=== PATIENT | female | born 1975 | race Caucasian/White ===

== ENCOUNTER → 2018-12-05 11:02 | Outpatient (REF) | payer OTHER, SELFPAY ==
[2018-12-05 12:35] LABS: Appearance Urine UA CLEAR; Bilirubin Urine UA NEGATIVE (NEGATIVE); Color Urine UA YELLOW; Glucose Urine UA NEGATIVE (Negative); Ketones Urine UA NEGATIVE (NEGATIVE); Leukocyte Esterase Urine UA NEGATIVE (NEGATIVE); Nitrite Urine UA NEGATIVE (Negative); Occult Blood Urine UA 3+ (Negative); Protein Urine UA NEGATIVE (Negative); Specific Gravity Urine UA 1.025 (1.000-1.035); Urobilinogen Urine UA 0.2 E.U./dL (0.2); pH Urine UA 5.5 (4.5-8.0)
[2018-12-05 13:05] LABS: Amorphous Sediment Urine 1+; Bacteria Urine Occasional (0-1); RBC Urine 1-5/HPF (0-5/HPF); Squamous Epithelial Cell Urine 1-5 /HPF; WBC Urine 1-5/HPF (0-5/HPF)
[2018-12-05 13:06] LABS: Culture Indicated Urine Cult Not Indicated; Mucus Urine 1+ (Negative)
== END ==
LOC: LAB 11:02
PROVIDERS: Visit Provider Nurse Practitioner Family
DX: R68.89 Other general symptoms and signs (principal); R53.83 Other fatigue
CPT/HCPCS: 81001

== ENCOUNTER 2019-06-07 09:42 | Emergency (ER) | payer OTHER, SELFPAY ==
--- NOTE | 2019-06-07 09:54 | DI.RAD.S_ITS ---
PROCEDURE: XR CHEST 2V INDICATIONS: shortness of breath TECHNIQUE: 2 views of the chest were acquired. COMPARISON: None. FINDINGS: Surgical changes and devices: None. Lungs and pleura: Lungs are clear. No pleural effusions or pneumothorax. Mediastinum: Mediastinal contours are normal. Heart size is normal. Bones and chest wall: No suspicious bony abnormalities. Soft tissues appear unremarkable. IMPRESSION: No acute cardiopulmonary abnormalities. Dictated by: Hitesh Zamudio M.D. on 06/07/2019 at 9:28 Approved by: Hitesh Zamudio M.D. on 06/07/2019 at 9:29
[2019-06-07 09:55] VITALS: BP 142/95; PULSE 83; RESP 18; TEMP 36.8; O2SAT 100; BMI 26.6
[2019-06-07] MEDS: ALBUTEROL 2.5 MG/3 ML NEB (ADULT) INH (10:04)
[2019-06-07 10:09] VITALS: PULSE 78; O2SAT 97
[2019-06-07 10:18] LABS: Add Manual Diff / Slide Review NO; Basophils Absolute Auto 0 /uL (0-100); Basophils Percent Auto 0.6 % (0-2); Eosinophils Absolute Auto 700 /uL (0-450); Hematocrit 39.1 % (36-46); Hemoglobin 13.2 g/dL (12.0-16.0); Lymphocytes Absolute Auto 1800 /uL (1100-4500); Lymphocytes Percent Auto 27.6 % (25-40); Mean Corpuscular HGB Conc 33.8 % (30-36); Mean Corpuscular Hemoglobin 31.9 PG (26-34); Mean Corpuscular Volume 94.3 fL (80-100); Monocytes Absolute Auto 400 /uL (0-900); Monocytes Percent Auto 6.2 % (3-14); Neutrophils Absolute Auto 3600 /uL (1500-7000); Neutrophils Percent Auto 55.6 % (50-75); Platelet Count 259 X10^3/uL (150-400); Red Blood Cell Count 4.14 X10^6/uL (4.0-5.2); Red Cell Distribution Width 12.7 % (11.6-14.8); White Blood Cell Count 6.5 X10^3/uL (4.5-11.0)
[2019-06-07 10:33] LABS: Alanine Aminotransferase 14 IU/L (9-52); Albumin 4.2 g/dL (3.5-5.0); Albumin Globulin Ratio 1.4 (1.0-2.8); Alkaline Phosphatase 38 U/L (38-126); Aspartate Aminotransferase 19 IU/L (14-36); Bilirubin Total 0.6 mg/dL (0.2-1.3); Blood Urea Nitrogen 11 mg/dL (7-17); Calcium 8.9 mg/dL (8.4-10.2); Carbon Dioxide 22 mmol/L (22-32); Chloride 107 mmol/L (98-107); Estimated Glomerular Filt Rate > 60.0 mL/min (>60); Globulin 2.9 g/dL (1.7-4.1); Glucose 94 mg/dL (70-100); HEMOLYSIS < 15 (0-50); Lactate (Lactic Acid) 0.7 mmol/L (0.7-2.1); Potassium 4.1 mmol/L (3.4-5.1); Sodium 139 mmol/L (137-145); Total Protein 7.1 g/dL (6.3-8.2)
[2019-06-07 11:00] VITALS: BP 123/76; PULSE 85; RESP 17; O2SAT 98
[2019-06-07 11:30] VITALS: BP 110/59; PULSE 78; RESP 16; O2SAT 97
--- NOTE | 2019-06-07 11:46 | ED.SOB ---
HPI - SOB/Dyspnea <PRADEEP Oh - Last Filed: 06/07/19 22:09> General Chief Complaint: Shortness of Breath/Dyspnea Stated Complaint: SOB/Chest heaviness-sent from [facility] Time Seen by Provider: 06/07/19 11:30 Source: patient and family Mode of arrival: ambulatory Limitations: no limitations History of Present Illness HPI Narrative: This is a 44-year-old female, nonsmoker, presents with her spouse with chief complain of a short of breath, mid chest pressure discomfort with tightness for 1 week. Patient reports this has been constant and she has to sleep with head of bed elevated due to cough. She denies fever, chills, nausea or vomiting, recent travel outside the [place] She was sweaty but not in cold-sweat. She is not currently on estrogen hormone, history of blood clotting problems. Patient reports cough is in nonproductive nature. She reports decreased appetite. She has history of asthma and been using albuterol inhaler about 4-5 times a day but effective. Patient denies cardiac history in family. She was not currently on statin but was told a abnormal to with lipid panel. Related Data Home Medications Medication Instructions Recorded Confirmed venlafaxine 75 mg capsule,extended 75 mg PO DAILY 10/02/18 11/28/18 release 24 hr ResMed AirSense 10 CPAP #1 ea 11/28/18 11/28/18 Previous Rx's Medication Instructions Recorded erythromycin 5 mg/gram (0.5 %) eye 1 applic OPHTHALMIC (EYE) TID #1 01/17/19 ointment gram albuterol sulfate 2 inhalation INHALATION Q6H PRN 06/07/19 #18 gram prednisone 40 mg PO DAILY 4 Days tab 06/07/19 Allergies Allergy/AdvReac Type Severity Reaction Status Date / Time Sulfa (Sulfonamide Allergy Unknown Unverified 01/20/19 08:58 Antibiotics) [SULFA (SULFONAMIDE ANTIBIOTICS)] Review of Systems <PRADEEP Oh - Last Filed: 06/07/19 22:09> Review of Systems Narrative: General: See HPI HEENT: Denies sinus pain, ear pain, sore throat, difficulty swallowing, dizziness. Respiratory: See HPI Cardiovascular: See HPI Gastrointestinal: Denies nausea, vomiting, abdominal pain, diarrhea, constipation, melena. : Denies dysuria, frequency, incontinence, hematuria, urinary retention. Musculoskeletal: Denies weakness, joint pain or bony pain. Skin: Denies rash, skin lesions, or other. Neurologic: Denies weakness, headache, numbness, change in speech, confusion, seizures, incoordination. Psychiatric: No concerning psychosocial issues. 12-point review of systems is negative except for those stated above. PFSH <PRADEEP Oh - Last Filed: 06/07/19 22:09> Medical History Depression with anxiety (Chronic) Hypersomnia (Chronic ~1989) Obstructive sleep apnea of adult (Chronic ~1989) Social History (System 01/20/19 @ 08:58 by Arminda Calloway) Smoking Status: Never smoker Social History Smoking Status: Never smoker Exam <PRADEEP Oh - Last Filed: 06/07/19 22:09> Narrative Exam Narrative: GEN: Alert, oriented x 3, well appearing and nourished, and in no acute distress. Head: Normal cephalic, atraumatic. No scalp or temporal tenderness, palpable mass or rash. EYES: Pupils are equal, round, and reactive to light and accommodation. Extraocular muscles are intact bilaterally. There is no subconjunctival hemorrhage, exudate and sclera non-icteric. ENT: Bilateral auditory canals and tympanic membranes clear. Hearing grossly intact. Nose without bleeding, purulent discharge or deviation. Facial sinuses nontender to palpate. Mucous membrane moist, no mucosal lesion. Throat without erythema, tonsillar hypertrophy or exudate. Uvula in midline, airway patent. Neck: Trachea in midline. No JVD, non-tender without lymphadenopathy. No masses or thyroid megaly. Supple, non-tender and no meningeal signs. CARDIAC: Normal regular rate and rhythm without murmurs, gallops, or rubs. No chest wall tenderness. No peripheral edema, cyanosis or pallor. Capillary refill is less than 2 seconds. RESPIRATORY: Lungs are cleat to auscultate bilaterally. No cough, wheezes, rales, or rhonchi. No stridor, respiratory distress, increase work of breathing, or accessary muscle used. ABD: Abdomen soft, nontender and non-distended. No guarding or rebound tenderness to palpate. Bowel sounds are normal in all 4 quadrants. There is no palpable masses or organomegaly. EXT: Full painless ROM of all extremities with no loss of sensation, strength, effusion or edema. SKIN: Warm, dry, normal color for patient. No erythema, lesions or rash over visible areas. BACK: Nontender without deformity or crepitance. No flank tenderness. NEUROLOGICAL: Alert and oriented to place, time and person. Sensation and motor function intact bilaterally. No facial droops, dysphasia. PSYCHIATRIC: Good judgement and reason, without hallucinations, abnormal affect or abnormal behaviors during the examination. Initial Vital Signs Initial Vital Signs: Vital Signs Temperature 98.2 F 06/07/19 09:55 Pulse Rate 83 06/07/19 09:55 Respiratory Rate 18 06/07/19 09:55 Blood Pressure 142/95 H 06/07/19 09:55 Pulse Oximetry 100 06/07/19 09:55 <Landy Montejo DO - Last Filed: 06/08/19 19:24> Initial Vital Signs Initial Vital Signs: Vital Signs Temperature 98.2 F 06/07/19 09:55 Pulse Rate 83 06/07/19 09:55 Respiratory Rate 18 06/07/19 09:55 Blood Pressure 142/95 H 06/07/19 09:55 Pulse Oximetry 100 06/07/19 09:55 Scores <PRADEEP Oh - Last Filed: 06/07/19 22:09> HEART Score Heart Score history: Slightly Suspicious Heart Score EKG: Normal Heart Score Age: 45-64 years old Heart Score risk factors: 1-2 risk factors Heart Score troponin: < or = to normal limit Heart Score Total: 2 Course <PRADEEP Oh - Last Filed: 06/07/19 22:09> Orders Ordered: Discontinued Medications Albuterol (Ventolin) 2.5 mg INH NOW ONE Stop: 06/07/19 09:59 Last Admin: 06/07/19 10:04 Dose: 2.5 mg Documented by: ILANA Albuterol (Ventolin) 2.5 mg INH NOW ONE Stop: 06/07/19 14:12 Last Admin: 06/07/19 14:57 Dose: Not Given Documented by: MARGARITO Prednisone (Deltasone) 40 mg PO NOW ONE Stop: 06/07/19 13:08 Last Admin: 06/07/19 13:22 Dose: 40 mg Documented by: MARGARITO Vital Signs Vital signs: Vital Signs - 8 hr 06/07/19 14:35 Pulse Rate 88 Blood Pressure [Right Arm] 135/96 H Pulse Oximetry 98 <Landy Montejo DO - Last Filed: 06/08/19 19:24> Orders Ordered: Discontinued Medications Albuterol (Ventolin) 2.5 mg INH NOW ONE Stop: 06/07/19 09:59 Last Admin: 06/07/19 10:04 Dose: 2.5 mg Documented by: ILANA Albuterol (Ventolin) 2.5 mg INH NOW ONE Stop: 06/07/19 14:12 Last Admin: 06/07/19 14:57 Dose: Not Given Documented by: MARGARITO Prednisone (Deltasone) 40 mg PO NOW ONE Stop: 06/07/19 13:08 Last Admin: 06/07/19 13:22 Dose: 40 mg Documented by: MARGARITO Vital Signs Vital signs: Vital Signs - 8 hr 06/07/19 14:35 Pulse Rate 88 Blood Pressure [Right Arm] 135/96 H Pulse Oximetry 98 MDM - SOB/Dyspnea <PRADEEP Oh - Last Filed: 06/07/19 22:09> Differential Diagnosis Differential diagnosis: Likely community acquired pneumonia, asthma with exacerbation, pulmonary embolism and other (atypical chest pain, ACS) Medical Records Attestation: I reviewed the patient's medical records. Lab Data Attestation: I reviewed the patient's lab results. Result diagrams: 06/07/19 10:09 06/07/19 10:09 Labs: Lab Results 06/07/19 06/07/19 06/07/19 Range/Units 10:09 10:09 10:09 WBC 6.5 (4.5-11.0) X10^3/uL RBC 4.14 (4.0-5.2) X10^6/uL Hgb 13.2 (12.0-16.0) g/dL Hct 39.1 (36-46) % MCV 94.3 (80-100) fL MCH 31.9 (26-34) PG MCHC 33.8 (30-36) % RDW 12.7 (11.6-14.8) % Plt Count 259 (150-400) X10^3/uL Neut % (Auto) 55.6 (50-75) % Lymph % (Auto) 27.6 (25-40) % [place] % (Auto) 6.2 (3-14) % Eos % (Auto) 10.0 H (2-4) % Baso % (Auto) 0.6 (0-2) % Neut # (Auto) 3600 (8238-7687) /uL Lymph # (Auto) 1800 (0881-2446) /uL [place] # (Auto) 400 (0-900) /uL Eos # (Auto) 700 H (0-450) /uL Baso # (Auto) 0 (0-100) /uL PT (10.1-12.7) SECONDS INR (0.9-1.3) APTT (26.4-36.2) SECONDS D-Dimer (<230) ng/mL Sodium 139 (137-145) mmol/L Potassium 4.1 (3.4-5.1) mmol/L Chloride 107 (98-107) mmol/L Carbon Dioxide 22 (22-32) mmol/L BUN 11 (7-17) mg/dL Creatinine 0.50 L (0.52-1.04) mg/dL Estimated GFR > 60.0 (>60) mL/min BUN/Creatinine Ratio 22.0 (6-22) Glucose 94 (70-100) mg/dL Lactate 0.7 (0.7-2.1) mmol/L Calcium 8.9 (8.4-10.2) mg/dL Total Bilirubin 0.6 (0.2-1.3) mg/dL AST 19 (14-36) IU/L ALT 14 (9-52) IU/L Alkaline Phosphatase 38 (38-126) U/L Total Creatine Kinase (30-135) U/L CK-MB (CK-2) CK-MB (CK-2) Rel Index Troponin I (0.01-0.034) ng/mL Total Protein 7.1 (6.3-8.2) g/dL Albumin 4.2 (3.5-5.0) g/dL Globulin 2.9 (1.7-4.1) g/dL Albumin/Globulin Ratio 1.4 (1.0-2.8) 06/07/19 06/07/19 06/07/19 Range/Units 10:09 10:09 10:09 WBC (4.5-11.0) X10^3/uL RBC (4.0-5.2) X10^6/uL Hgb (12.0-16.0) g/dL Hct (36-46) % MCV (80-100) fL MCH (26-34) PG MCHC (30-36) % RDW (11.6-14.8) % Plt Count (150-400) X10^3/uL Neut % (Auto) (50-75) % Lymph % (Auto) (25-40) % [place] % (Auto) (3-14) % Eos % (Auto) (2-4) % Baso % (Auto) (0-2) % Neut # (Auto) (0913-4363) /uL Lymph # (Auto) (4033-7913) /uL Fallon # (Auto) (0-900) /uL Eos # (Auto) (0-450) /uL Baso # (Auto) (0-100) /uL PT 11.1 (10.1-12.7) SECONDS INR 1.0 (0.9-1.3) APTT 30 (26.4-36.2) SECONDS D-Dimer < 200 (<230) ng/mL Sodium (137-145) mmol/L Potassium (3.4-5.1) mmol/L Chloride (98-107) mmol/L Carbon Dioxide (22-32) mmol/L BUN (7-17) mg/dL Creatinine (0.52-1.04) mg/dL Estimated GFR (>60) mL/min BUN/Creatinine Ratio (6-22) Glucose (70-100) mg/dL Lactate (0.7-2.1) mmol/L Calcium (8.4-10.2) mg/dL Total Bilirubin (0.2-1.3) mg/dL AST (14-36) IU/L ALT (9-52) IU/L Alkaline Phosphatase (38-126) U/L Total Creatine Kinase 44 (30-135) U/L CK-MB (CK-2) TNP CK-MB (CK-2) Rel Index TNP Troponin I < 0.012 (0.01-0.034) ng/mL Total Protein (6.3-8.2) g/dL Albumin (3.5-5.0) g/dL Globulin (1.7-4.1) g/dL Albumin/Globulin Ratio (1.0-2.8) Imaging Data Chest x-ray: Radiologist's impression: [address] [id number] XRay Report Signed Patient: Ashley Petersen [facility]#: [id number] : 1975Acct:[id number] Age/Sex: 44 / FDate of Service: 06/07/19 Loc: ED Accession Number: [id number] Procedure: XR chest 2V Ordering Provider: Landy Montejo D.O. PROCEDURE: XR CHEST 2V INDICATIONS: shortness of breath TECHNIQUE: 2 views of the chest were acquired. COMPARISON: None. FINDINGS: Surgical changes and devices: None. Lungs and pleura: Lungs are clear. No pleural effusions or pneumothorax. Mediastinum: Mediastinal contours are normal. Heart size is normal. Bones and chest wall: No suspicious bony abnormalities. Soft tissues appear unremarkable. IMPRESSION: No acute cardiopulmonary abnormalities. Dictated by: Hitesh Zamudio M.D. on 06/07/2019 at 9:28 Approved by: Hitesh Zamudio M.D. on 06/07/2019 at 9:29 ECG Data Attestation: I personally reviewed and interpreted this ECG as follows: Interpretation: Sinus rhythm rate at 74. Indetermined [place] interval (112ms) No ST elevation or depression MDM Narrative Medical decision making narrative: This patient is 44-year-old female in non toxic appearing who presents to ED with short of breath, nonproductive cough, chest tightness and pressure discomfort for 1 week. Patient does not have previous cardiac history, family history of cardiac events, no recent prolonged travel, is not on HRT or estrogen based control pill. When patient was asked about the albuterol inhaler, patient found out that her current albuterol inhaler has about a year ago which she has been using 4 to 5 times a day as needed for her symptoms for last 1 week. Patient reports she seldomly use in the past due to her symptoms were well managed. The EKG was normal sinus rhythm without ST elevation or depression. The chest x-ray shows no acute findings such as pneumonia, pneumothorax, cardiomegaly. Cardiac enzymes were negative. Coag and D-dimer were normal. Eosinophil count was elevated today which possibly related to asthma. The peak flow was 300/400 as pre and post treatment. Patient reports chest tightness and breathing seemed a while after the 1st neb treatment. Patient was medicated with prednisone as 1st dose of 5 day course and states she is feeling better prior discharge to home. A prescription for albuterol was provided for breathing difficulty, coughing, chest tightness. Return precautions were discussed with the patient and advised to follow up with regular physician to 3 days for re-evaluation. Patient and spouse agree with the treatment plan. No further questions were expressed at this time. <Landy Montejo, DO - Last Filed: 06/08/19 19:24> Lab Data Labs: Lab Results 06/07/19 06/07/19 06/07/19 Range/Units 10:09 10:09 10:09 WBC 6.5 (4.5-11.0) X10^3/uL RBC 4.14 (4.0-5.2) X10^6/uL Hgb 13.2 (12.0-16.0) g/dL Hct 39.1 (36-46) % MCV 94.3 (80-100) fL MCH 31.9 (26-34) PG MCHC 33.8 (30-36) % RDW 12.7 (11.6-14.8) % Plt Count 259 (150-400) X10^3/uL Neut % (Auto) 55.6 (50-75) % Lymph % (Auto) 27.6 (25-40) % [place] % (Auto) 6.2 (3-14) % Eos % (Auto) 10.0 H (2-4) % Baso % (Auto) 0.6 (0-2) % Neut # (Auto) 3600 (7359-3389) /uL Lymph # (Auto) 1800 (4378-2296) /uL [place] # (Auto) 400 (0-900) /uL Eos # (Auto) 700 H (0-450) /uL Baso # (Auto) 0 (0-100) /uL PT (10.1-12.7) SECONDS INR (0.9-1.3) APTT (26.4-36.2) SECONDS D-Dimer (<230) ng/mL Sodium 139 (137-145) mmol/L Potassium 4.1 (3.4-5.1) mmol/L Chloride 107 (98-107) mmol/L Carbon Dioxide 22 (22-32) mmol/L BUN 11 (7-17) mg/dL Creatinine 0.50 L (0.52-1.04) mg/dL Estimated GFR > 60.0 (>60) mL/min BUN/Creatinine Ratio 22.0 (6-22) Glucose 94 (70-100) mg/dL Lactate 0.7 (0.7-2.1) mmol/L Calcium 8.9 (8.4-10.2) mg/dL Total Bilirubin 0.6 (0.2-1.3) mg/dL AST 19 (14-36) IU/L ALT 14 (9-52) IU/L Alkaline Phosphatase 38 (38-126) U/L Total Creatine Kinase (30-135) U/L CK-MB (CK-2) CK-MB (CK-2) Rel Index Troponin I (0.01-0.034) ng/mL Total Protein 7.1 (6.3-8.2) g/dL Albumin 4.2 (3.5-5.0) g/dL Globulin 2.9 (1.7-4.1) g/dL Albumin/Globulin Ratio 1.4 (1.0-2.8) 06/07/19 06/07/19 06/07/19 Range/Units 10:09 10:09 10:09 WBC (4.5-11.0) X10^3/uL RBC (4.0-5.2) X10^6/uL Hgb (12.0-16.0) g/dL Hct (36-46) % MCV (80-100) fL MCH (26-34) PG MCHC (30-36) % RDW (11.6-14.8) % Plt Count (150-400) X10^3/uL Neut % (Auto) (50-75) % Lymph % (Auto) (25-40) % [place] % (Auto) (3-14) % Eos % (Auto) (2-4) % Baso % (Auto) (0-2) % Neut # (Auto) (3047-4801) /uL Lymph # (Auto) (4880-3429) /uL [place] # (Auto) (0-900) /uL Eos # (Auto) (0-450) /uL Baso # (Auto) (0-100) /uL PT 11.1 (10.1-12.7) SECONDS INR 1.0 (0.9-1.3) APTT 30 (26.4-36.2) SECONDS D-Dimer < 200 (<230) ng/mL Sodium (137-145) mmol/L Potassium (3.4-5.1) mmol/L Chloride (98-107) mmol/L Carbon Dioxide (22-32) mmol/L BUN (7-17) mg/dL Creatinine (0.52-1.04) mg/dL Estimated GFR (>60) mL/min BUN/Creatinine Ratio (6-22) Glucose (70-100) mg/dL Lactate (0.7-2.1) mmol/L Calcium (8.4-10.2) mg/dL Total Bilirubin (0.2-1.3) mg/dL AST (14-36) IU/L ALT (9-52) IU/L Alkaline Phosphatase (38-126) U/L Total Creatine Kinase 44 (30-135) U/L CK-MB (CK-2) TNP CK-MB (CK-2) Rel Index TNP Troponin I < 0.012 (0.01-0.034) ng/mL Total Protein (6.3-8.2) g/dL Albumin (3.5-5.0) g/dL Globulin (1.7-4.1) g/dL Albumin/Globulin Ratio (1.0-2.8) Discharge Plan Departure Patient Disposition: Home Clinical Impression: Atypical chest pain Asthma exacerbation Qualifiers: Asthma severity: mild Asthma persistence: unspecified Qualified Code(s): J45.901 - Unspecified asthma with (acute) exacerbation Discharge Date/Time: 06/07/19 14:58 Instructions: DI for Asthma -- Adult, DI for Atypical Chest Pain Activity Restrictions/Additional Instructions: You have been diagnosed with [chest tightness/pressure, coughing, short of breath. The blood test for cardiac enzyme and D-dimer were negative. The eosinophil was elevated and this may be releated to asthma. X-ray on chest shows no acute findings such as pneumonia, pneumothorax ]. What to do: *Take your medications as directed. Please discard your albuterol and new prescription has been provided today. Continue to take prednisone daily for next 4 days and as we discussed this may cause elevated blood sugar, insomnia, stomach irritation. *Follow up with your primary care provider in 2-3 days, call for an appointment. Let them know you were seen in the ED and that we asked you to be seen in follow up. *Return to ED if you have any new, worsening, or concerning symptoms, such as [increasing chest pain, different type of chest pain, increasing difficulty breathing, unable to tolerate fluids, feeling cold sweats, nausea or vomiting, weakness or any acute concerns]. Prescriptions: New prednisone 20 mg tablet 40 mg PO DAILY 4 Days RF: 0 albuterol sulfate 90 mcg/actuation HFA aerosol inhaler 2 inhalation INHALATION Q6H PRN (Reason: shortness of breath or wheezing) Qty: 18 RF: 0 No Action venlafaxine [Effexor XR] 75 mg capsule,extended release 24hr 75 mg PO DAILY RF: 0 erythromycin 5 mg/gram (0.5 %) ointment 1 applic ophthalmic (eye) TID Qty: 1 RF: 0 (DME) ResMed AirSense 10 CPAP Qty: 1 RF: 0 Referrals: Christiana Márquez ARNP [Non-Staff] -
[2019-06-07 12:19] VITALS: BP 117/75; PULSE 77; PULSE 83; RESP 14; RESP 16; O2SAT 100; O2SAT 97
[2019-06-07] MEDS: predniSONE 20 MG TABLET 40 MG PO (13:22)
[2019-06-07 13:29] LABS: Creatine Kinase 44 U/L (30-135)
[2019-06-07 13:41] LABS: Troponin I < 0.012 ng/mL (0.01-0.034)
[2019-06-07 14:08] LABS: D Dimer < 200 ng/mL (<230)
[2019-06-07 14:35] VITALS: BP 135/96; PULSE 88; O2SAT 98
[2019-06-07 14:36] LABS: PTT Partial Thromboplastin Tim 30 SECONDS (26.4-36.2); Prothrombin Time 11.1 SECONDS (10.1-12.7)
== END 2019-06-07 14:58 | disposition home or self-care (01) ==
PROVIDERS: Emergency Medicine; Emergency Provider Nurse Practitioner Family; Family Provider Registered Nurse Women's Health Care, Ambulatory
DX: R07.89 Other chest pain (principal); J45.901 Unspecified asthma with (acute) exacerbation
CPT/HCPCS: 36591; 71046; 80053; 82550; 83605; 84484; 85025; 85379; 85610; 85730; 93005; 94150; 94640; 99283; 99285; J7613

== ENCOUNTER → 2020-06-19 13:26 | Outpatient (CLI) | payer OTHER, SELFPAY ==
--- NOTE | 2020-06-19 13:27 | DI.MG.S_ITS ---
BILATERAL DIGITAL SCREENING MAMMOGRAM 3D/2D WITH CAD: 06/19/2020 CLINICAL: Routine screening. Comparison is made to exams dated: 01/04/2018 mammogram, 12/08/2015 mammogram, 12/20/2015 mammogram, 12/04/2014 mammogram - [facility], and 01/09/2008 mammogram - [facility]. The tissue of both breasts is extremely dense, which lowers the sensitivity of mammography. Current study was also evaluated with a Computer Aided Detection (CAD) system. No significant masses, calcifications, or other findings are seen in either breast. There has been no significant interval change. IMPRESSION: NEGATIVE There is no mammographic evidence of malignancy. A 1 year screening mammogram is recommended. This exam was interpreted at Station ID: [id number]. NOTE: For mammograms, a report in lay terms will be sent to the patient. Approximately 15% of breast malignancies will not be visualized mammographically. In the management of a palpable breast mass, a negative mammogram must not discourage biopsy of a clinically suspicious lesion. Electronically Signed By: Rafiq bojorquez/ted:06/21/2020 09:11:32 letter sent: Normal Exam ACR BI-RADS Category 1: Negative [id number]
== END ==
PROVIDERS: Family Provider Registered Nurse Women's Health Care, Ambulatory; PCP Registered Nurse Diabetes Educator; Referring Provider Registered Nurse Diabetes Educator; Visit Provider Registered Nurse Diabetes Educator
DX: Z12.31 Encounter for screening mammogram for malignant neoplasm of breast (principal)
CPT/HCPCS: 77063; 77067

== ENCOUNTER → 2020-08-27 10:32 | Outpatient (CLI) | payer SELFPAY ==
[2020-08-27 11:07] LABS: COVID19 -Nasal RAPID POSITIVE (Negative)
[2020-08-27 11:15] LABS: Influenza A - CEPHEID Flu A NEGATIVE (NEGATIVE); Influenza B - CEPHEID Flu B NEGATIVE (NEGATIVE)
== END ==
PROVIDERS: Family Provider Registered Nurse Women's Health Care, Ambulatory; PCP Registered Nurse Diabetes Educator; Visit Provider Family Medicine
DX: U07.1 COVID-19 (principal)
CPT/HCPCS: 87502; 87635

== ENCOUNTER → 2020-11-30 10:19 | Outpatient (CLI) | payer SELFPAY ==
[2020-11-30 11:06] LABS: Add Manual Diff / Slide Review NO; Basophils Absolute Auto 0 /uL (0-100); Basophils Percent Auto 0.5 % (0-2); Eosinophils Absolute Auto 300 /uL (0-450); Eosinophils Percent Auto 5.2 % (2-4); Hematocrit 39.1 % (36-46); Hemoglobin 12.9 g/dL (12.0-16.0); Lymphocytes Absolute Auto 2000 /uL (1100-4500); Lymphocytes Percent Auto 33.6 % (25-40); Mean Corpuscular HGB Conc 32.9 % (30-36); Mean Corpuscular Hemoglobin 30.8 PG (26-34); Mean Corpuscular Volume 93.8 fL (80-100); Monocytes Absolute Auto 400 /uL (0-900); Monocytes Percent Auto 5.9 % (3-14); Neutrophils Absolute Auto 3300 /uL (1500-7000); Neutrophils Percent Auto 54.8 % (50-75); Platelet Count 249 X10^3/uL (150-400); Red Blood Cell Count 4.17 X10^6/uL (4.0-5.2)
[2020-11-30 11:24] LABS: Alanine Aminotransferase 15 IU/L (<35); Albumin 4.5 g/dL (3.5-5.0); Albumin Globulin Ratio 1.7 (1.0-2.8); Alkaline Phosphatase 44 U/L (38-126); Aspartate Aminotransferase 19 IU/L (14-36); BUN Creatinine Ratio 13.3 (6-22); Bilirubin Total 0.4 mg/dL (0.2-1.3); Blood Urea Nitrogen 10 mg/dL (7-17); Calcium 9.3 mg/dL (8.4-10.2); Carbon Dioxide 29 mmol/L (22-32); Chloride 104 mmol/L (98-107); Cholesterol 247 mg/dL (140-199); Estimated Glomerular Filt Rate > 60.0 mL/min (>60); Globulin 2.7 g/dL (1.7-4.1); Glucose 94 mg/dL (70-100); HDL Cholesterol 62 mg/dL (40-60); HEMOLYSIS < 15 (0-50); LDL Cholesterol Calculated 149 mg/dL (<100); Potassium 4.4 mmol/L (3.4-5.1); Sodium 136 mmol/L (137-145); Total Protein 7.2 g/dL (6.3-8.2); Triglycerides 179 mg/dL (35-150)
[2020-11-30 11:58] LABS: TSH w/ Reflex to FT4 1.06 uIU/mL (0.47-4.68)
== END ==
PROVIDERS: Family Provider Registered Nurse Women's Health Care, Ambulatory; PCP Registered Nurse Diabetes Educator; Referring Provider Registered Nurse Diabetes Educator; Visit Provider Registered Nurse Diabetes Educator
DX: Z00.00 Encounter for general adult medical examination without abnormal findings (principal)
CPT/HCPCS: 36415; 80053; 80061; 84443; 85025

== ENCOUNTER → 2020-12-23 10:16 | Outpatient (CLI) | payer OTHER, SELFPAY ==
[2020-12-23] MEDS: COVID-19 VACC #1, MRNA(MOD) 100 MCG/0.5 ML VIAL IM (10:27)
== END ==
PROVIDERS: Family Provider Registered Nurse Women's Health Care, Ambulatory; PCP Registered Nurse Diabetes Educator; Visit Provider Internal Medicine
DX: Z23 Encounter for immunization (principal)
CPT/HCPCS: 0011A; 91301

== ENCOUNTER → 2021-01-20 10:07 | Outpatient (CLI) | payer OTHER, SELFPAY ==
[2021-01-20] MEDS: COVID-19 VACC #2, MRNA(MOD) 100 MCG/0.5 ML VIAL IM (10:12)
== END ==
PROVIDERS: Family Provider Registered Nurse Women's Health Care, Ambulatory; PCP Registered Nurse Diabetes Educator; Visit Provider Internal Medicine
DX: Z23 Encounter for immunization (principal)
CPT/HCPCS: 0012A; 91301

== ENCOUNTER → 2021-07-16 08:58 | Outpatient (CLI) | payer OTHER, SELFPAY ==
[2021-07-16 10:01] LABS: COVID19 -Nasal RAPID Negative (Negative)
== END ==
PROVIDERS: Family Provider Registered Nurse Women's Health Care, Ambulatory; PCP Registered Nurse Diabetes Educator; Visit Provider Nurse Practitioner Family
DX: J31.2 Chronic pharyngitis (principal); Z20.822 Contact with and (suspected) exposure to COVID-19
CPT/HCPCS: 87070; 87635

== ENCOUNTER → 2021-07-16 09:09 | Outpatient (CLI) | payer SELFPAY ==
[2021-07-16 10:02] LABS: Monotest Negative (Negative)
== END ==
PROVIDERS: Family Provider Registered Nurse Women's Health Care, Ambulatory; PCP Registered Nurse Diabetes Educator; Referring Provider Nurse Practitioner Family; Visit Provider Nurse Practitioner Family
DX: R53.83 Other fatigue (principal); R50.9 Fever, unspecified
CPT/HCPCS: 36415; 86318

== ENCOUNTER → 2021-11-01 08:52 | Outpatient (CLI) | payer OTHER, SELFPAY ==
[2021-11-01 09:34] LABS: Hematocrit 37.2 % (36-46); Hemoglobin 12.6 g/dL (12.0-16.0); Mean Corpuscular HGB Conc 33.8 % (30-36); Mean Corpuscular Volume 91.7 fL (80-100); Platelet Count 248 X10^3/uL (150-400); Red Blood Cell Count 4.06 X10^6/uL (4.0-5.2); Red Cell Distribution Width 12.7 % (11.6-14.8); White Blood Cell Count 4.7 X10^3/uL (4.5-11.0)
[2021-11-01 09:50] LABS: Alanine Aminotransferase 15 IU/L (<35); Albumin 4.3 g/dL (3.5-5.0); Albumin Globulin Ratio 1.5 (1.0-2.8); Alkaline Phosphatase 39 U/L (38-126); Aspartate Aminotransferase 22 IU/L (14-36); BUN Creatinine Ratio 15.3 (6-22); Bilirubin Total 0.6 mg/dL (0.2-1.3); Blood Urea Nitrogen 13 mg/dL (7-17); Calcium 9.2 mg/dL (8.4-10.2); Carbon Dioxide 27 mmol/L (22-32); Chloride 104 mmol/L (98-107); Cholesterol 212 mg/dL (140-199); Estimated Glomerular Filt Rate > 60.0 mL/min (>60); Globulin 2.8 g/dL (1.7-4.1); Glucose 93 mg/dL (70-100); HDL Cholesterol 57 mg/dL (40-60); HEMOLYSIS < 15 (0-50); LDL Cholesterol Calculated 128 mg/dL (<100); Potassium 4.4 mmol/L (3.4-5.1); Sodium 138 mmol/L (137-145); Total Protein 7.1 g/dL (6.3-8.2); Triglycerides 133 mg/dL (35-150)
[2021-11-01 10:38] LABS: TSH w/ Reflex to FT4 1.51 uIU/mL (0.47-4.68)
== END ==
PROVIDERS: Family Provider Registered Nurse Women's Health Care, Ambulatory; PCP Registered Nurse Diabetes Educator; Referring Provider Registered Nurse Diabetes Educator; Visit Provider Registered Nurse Diabetes Educator
DX: E78.5 Hyperlipidemia, unspecified (principal); I10 Essential (primary) hypertension
CPT/HCPCS: 36415; 80053; 80061; 84443; 85027